=== PATIENT | female | born 1995 | race Hispanic/Latino ===

== ENCOUNTER 2016-08-05 17:49 | Emergency (ER) | payer MEDICAID, OTHER ==
[2016-08-05 18:09] VITALS: BP 105/63
[2016-08-05] MEDS ORDERED: MOTRIN PO ONE (19:28)
[2016-08-05 20:06] LABS: Hemoglobin 13.3 gm/dl (10.1-14.3); Mean Corpuscular HGB Conc 33 % (30-34); Mean Corpuscular Hemoglobin 29 pg (28-32); Mean Corpuscular Volume 88 fl (79-97); Platelet Count 254 K/mm3 (140-440); Red Blood Count 4.53 M/mm3 (3.65-5.03); Red Cell Distribution Width 13.2 % (13.2-15.2); White Blood Count 11.3 K/mm3 (4.5-11.0)
[2016-08-05 20:16] LABS: Anion Gap 19 mmol/L; Blood Urea Nitrogen 18 mg/dL (7-17); Calcium 8.8 mg/dL (8.4-10.2); Carbon Dioxide 23 mmol/L (22-30); Chloride 103.6 mmol/L (98-107); Glucose 84 mg/dL (65-100); Potassium 3.7 mmol/L (3.6-5.0); Sodium 142 mmol/L (137-145)
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
--- NOTE | 2016-08-06 14:10 | ED Elopement Review ---
ED Pt Elopement review - Results review Lab results: Laboratory Tests 08/05/16 08/05/16 19:45 19:45 WBC 11.3 H RBC 4.53 Hgb 13.3 Hct 40.0 MCV 88 MCH 29 MCHC 33 RDW 13.2 Plt Count 254 Sodium 142 Potassium 3.7 Chloride 103.6 Carbon Dioxide 23 Anion Gap 19 BUN 18 H Creatinine 0.6 L Estimated GFR > 60 BUN/Creatinine Ratio 30.00 Glucose 84 Calcium 8.8 - Call Back decision Pt Call Back Decision: No action required
== END 2016-08-06 03:05 | disposition left against medical advice (07) ==
LOC: ED 17:49
DX: M25.532 Pain in left wrist (principal); M54.2 Cervicalgia; M25.561 Pain in right knee; R51 Headache; M54.9 Dorsalgia, unspecified; R42 Dizziness and giddiness; Z53.21 Procedure and treatment not carried out due to patient leaving prior to being seen by health care provider; V89.2XXA Person injured in unspecified motor-vehicle accident, traffic, initial encounter; Y93.89 Activity, other specified; Y99.8 Other external cause status; Y92.89 Other specified places as the place of occurrence of the external cause
CPT/HCPCS: 36415; 80048; 85027; 93005; 93010

== ENCOUNTER 2016-12-24 08:41 | Emergency (ER) | payer MEDICAID, OTHER ==
[2016-12-24 09:01] VITALS: BP 106/70
[2016-12-24] MEDS ORDERED: TORADOL IM ONE (10:05)
[2016-12-24] MEDS ORDERED: DECADRON IV ONE (10:05)
[2016-12-24] MEDS ORDERED: DECADRON IM ONE (10:09)
--- NOTE | 2016-12-24 10:11 | Emergency Department Report ---
ED Back Pain/Injury HPI - General Chief Complaint: Back Pain/Injury Stated Complaint: BODY PAIN Time Seen by Provider: 12/24/16 09:59 Source: patient Limitations: No Limitations - History of Present Illness Initial Comments: Patient comes into the ER today with complaints of lower back pain that seems to be radiating to both of her legs down the back side all the way down to her knees. Patient denies any recent injury. Patient states that the pain started yesterday and she has not taken anything for it. Patient states the pain is worse with ambulation and movement. Patient does note that she has a history of bad disc problems in her back and used to see a chiropractor where she got injections in her spine. Patient further notes that she quit seen them whenever they tried to convince her to have surgery on her back. Patient states that she has been doing okay until yesterday. Patient states that she describes the pain as sharp stabbing pain and almost like a spasming muscle. Any dysuria, abdominal pain, vomiting. MD Complaint: back pain - Related Data Previous Rx's Medication Instructions Recorded Last Taken Type Ferrous Sulfate [Feosol 325 MG tab] 325 mg PO BID #60 tablet 03/15/15 Unknown Rx Ibuprofen [Motrin 600 MG tab] 600 mg PO Q6HR #30 tablet 03/15/15 Unknown Rx Vit-Fe Fumar-FA [ 1 each PO QDAY #30 tablet 03/15/15 Unknown Rx Vitamin] Cyclobenzaprine HCl [Flexeril 5 MG 5 mg PO TID #15 tab 12/24/16 Unknown Rx TAB] Naproxen [Naprosyn TAB] 500 mg PO BID #20 tablet 12/24/16 Unknown Rx traMADol [Ultram 50 MG tab] 50 mg PO Q6HR PRN #20 tablet 12/24/16 Unknown Rx Allergies Allergy/AdvReac Type Severity Reaction Status Date / Time No Known Allergies Allergy Verified 12/24/16 08:57 ED Review of Systems ROS: Stated complaint: BODY PAIN Other details as noted in HPI Constitutional: denies: chills, fever Eyes: denies: eye pain, eye discharge, vision change ENT: denies: ear pain, throat pain Respiratory: denies: cough, shortness of breath, wheezing Cardiovascular: denies: chest pain, palpitations Endocrine: no symptoms reported Gastrointestinal: denies: abdominal pain, nausea, diarrhea Genitourinary: denies: urgency, dysuria, discharge Musculoskeletal: back pain, myalgia. 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 - Surgical History Past Surgical History?: No - Social History Smoking Status: Current Every Day Smoker Substance Use Type: Alcohol - Medications Home Medications: Home Medications Medication Instructions Recorded Confirmed Last Taken Type Ferrous Sulfate [Feosol 325 MG tab] 325 mg PO BID #60 tablet 03/15/15 Unknown Rx Ibuprofen [Motrin 600 MG tab] 600 mg PO Q6HR #30 tablet 03/15/15 Unknown Rx Vit-Fe Fumar-FA [ 1 each PO QDAY #30 tablet 03/15/15 Unknown Rx Vitamin] Cyclobenzaprine HCl [Flexeril 5 MG 5 mg PO TID #15 tab 12/24/16 Unknown Rx TAB] Naproxen [Naprosyn TAB] 500 mg PO BID #20 tablet 12/24/16 Unknown Rx traMADol [Ultram 50 MG tab] 50 mg PO Q6HR PRN #20 tablet 12/24/16 Unknown Rx ED Physical Exam - General Limitations: No Limitations General appearance: alert, in no apparent distress - Head Head exam: Present: atraumatic, normocephalic - Eye Eye exam: Present: normal appearance - ENT ENT exam: Present: mucous membranes moist - Neck Neck exam: Present: normal inspection - Respiratory Respiratory exam: Present: normal lung sounds bilaterally. Absent: respiratory distress - Cardiovascular Cardiovascular Exam: Present: regular rate, normal rhythm. Absent: systolic murmur, diastolic murmur, rubs, gallop - GI/Abdominal GI/Abdominal exam: Present: soft, normal bowel sounds. Absent: distended, tenderness - Extremities Exam Extremities exam: Present: normal inspection, full ROM, normal capillary refill. Absent: tenderness, pedal edema, joint swelling, calf tenderness - Back Exam Back exam: Present: normal inspection, tenderness (right greater than left sided tenderness to lumbar paraspinal muscles.), muscle spasm (right-sided lumbar muscle swelling and tenderness), paraspinal tenderness. Absent: full ROM (Limited range of motion secondary to pain.), CVA tenderness (R), CVA tenderness (L), vertebral tenderness, rash noted - Neurological Exam Neurological exam: Present: alert, oriented X3, CN II-XII intact, normal gait, reflexes normal. Absent: motor sensory deficit - Psychiatric Psychiatric exam: Present: other (patient is very dramatic during examination) - Skin Skin exam: Present: warm, dry, intact, normal color. Absent: rash ED Course Vital Signs 12/24/16 08:57 Temperature 98.4 F Pulse Rate 85 Respiratory 18 Rate Blood Pressure 106/70 O2 Sat by Pulse 100 Oximetry ED Medical Decision Making - Radiology Data Radiology results: report reviewed, image reviewed interpreted by me: X-ray LS spine: Mild right lateral rotation suggestive of muscle spasm. X-ray LS spine: No acute fracture - Medical Decision Making Patient is nontoxic and hemodynamically stable. Patient was given Toradol and Decadron intramuscular injection for radiculopathy inflammation. X-ray imaging obtained and reviewed with patient room. Physical exam and history is more consistent with muscle spasm causing a pinched nerve versus discogenic etiology. He'll continue patient on a short course of medications for symptomatic relief and refer patient back to neurosurgery for further evaluation. I have encouraged patient to avoid any strenuous heavy lifting pushing pulling for the next few days. Patient is in agreement with treatment plan patient stable for discharge. Critical care attestation.: If time is entered above; I have spent that time in minutes in the direct care of this critically ill patient, excluding procedure time. ED Disposition Clinical Impression: Low back pain, Lumbar radiculopathy Disposition: - TO HOME OR SELFCARE Is pt being admited?: No Does the pt Need Aspirin: No Condition: Good Instructions: Lumbar Disc Herniation (ED), Low Back Strain (ED), Lumbar Radiculopathy (ED) Prescriptions: Cyclobenzaprine HCl [Flexeril 5 MG TAB] 5 mg PO TID #15 tab Naproxen [Naprosyn TAB] 500 mg PO BID #20 tablet traMADol [Ultram 50 MG tab] 50 mg PO Q6HR PRN #20 tablet PRN Reason: Pain Referrals: PRIMARY CARE, [Primary Care Provider] - 3-5 Days KAREN BORREGO MD [Staff Physician] - 3-5 Days Forms: Work/School Release Form(ED) Time of Disposition: 10:37
--- NOTE | 2016-12-24 10:27 | XRay Report ---
Lumbar spine 3 views: History: Lumbar radiculopathy. Findings: Normal height of vertebral bodies and intervertebral discs. Normal articular surfaces. No fracture. No paravertebral soft tissue calcification. Impression: No acute fracture.
== END 2016-12-24 10:43 | disposition home or self-care (01) ==
LOC: ED 08:41
DX: M54.16 Radiculopathy, lumbar region (principal); M54.5 Low back pain; F17.200 Nicotine dependence, unspecified, uncomplicated
CPT/HCPCS: 72100; 96372; 99283; J1100; J1885

== ENCOUNTER 2017-06-19 19:41 | Emergency (ER) | payer MEDICAID ==
[2017-06-19] MEDS ORDERED: TYLENOL PO ONE (20:14)
[2017-06-19] MEDS ORDERED: PROVENTIL IH ONE (20:15)
[2017-06-19] MEDS ORDERED: TYLENOL ONE (20:16)
--- NOTE | 2017-06-19 21:05 | XRay Report ---
FINAL REPORT PROCEDURE: Chest. TECHNIQUE: PA and lateral views. HISTORY: Cough. COMPARISON: No prior studies are available for comparison. FINDINGS: The heart and mediastinum appear normal. The lungs are clear and well expanded. There are no pleural effusions. The soft tissues and regional skeleton are unremarkable. IMPRESSION: Normal study.
[2017-06-20] MEDS ORDERED: TESSALON PERLES PO ONE (07:52)
--- NOTE | 2017-06-20 08:01 | Emergency Department Report ---
- General Chief Complaint: Upper Respiratory Infection Stated Complaint: SHORT OF BREATH Time Seen by Provider: 06/20/17 07:12 Source: patient Mode of arrival: Ambulatory Limitations: No Limitations - History of Present Illness Initial Comments: This is a 21-year-old female nontoxic, well nourished in appearance, no acute signs of distress presents to the ED with c/o of shortness of breath, productive cough, fever, chills, rhinorrhea, body aches, 3 days. They state his symptoms are worsening. Patient denies any hemoptysis, calf pain, calf tenderness, nausea, vomiting, headache, stiff neck, abdominal pain, pelvic pain , numbness, tingling, chest pain, difficulty breathing, or blurry vision. Patient denies any recent travels, long car rides, or recent DISEASE. Patient denies any allergies. Past medical history includes irregular heart rhythm and slipped lumbar disc. MD Complaint: fever, cough, sore throat, rhinorrhea, nasal congestion, other ( shortness of breathe) -: Gradual, days(s) (3) Severity: mild Severity scale (0 -10): 8 Quality: aching Consistency: constant Improves With: nothing Worsens With: nothing Associated Symptoms: fever, chills, rhinorrhea, nasal congestion, sore throat, cough. denies: myalgias, diaphoresis, headache, stiff neck, chest pain, shortness of breath, abdominal pain, nausea, vomiting, diarrhea, dysuria, rash, confusion, right sweats, weight loss, epistaxis, hoarseness, ear pain Treatments Prior to Arrival: none - Related Data Previous Rx's Medication Instructions Recorded Last Taken Type Ferrous Sulfate [Feosol 325 MG tab] 325 mg PO BID #60 tablet 03/15/15 Unknown Rx Ibuprofen [Motrin 600 MG tab] 600 mg PO Q6HR #30 tablet 03/15/15 Unknown Rx Vit-Fe Fumar-FA [ 1 each PO QDAY #30 tablet 03/15/15 Unknown Rx Vitamin] Cyclobenzaprine HCl [Flexeril 5 MG 5 mg PO TID #15 tab 12/24/16 Unknown Rx TAB] Naproxen [Naprosyn TAB] 500 mg PO BID #20 tablet 12/24/16 Unknown Rx traMADol [Ultram 50 MG tab] 50 mg PO Q6HR PRN #20 tablet 12/24/16 Unknown Rx Azithromycin [Zithromax Z-ED] 250 mg PO DAILY #6 tablet 06/20/17 Unknown Rx Benzonatate [Tessalon Perle] 100 mg PO Q6H PRN #20 capsule 06/20/17 Unknown Rx Ibuprofen [Motrin] 600 mg PO Q8H PRN #30 tablet 06/20/17 Unknown Rx Nystas/Diphen/Xyl Visc/Mylanta 15 ml MM Q6H PRN 10 Days udc 06/20/17 Unknown Rx [Magic Mouthwash] Allergies Allergy/AdvReac Type Severity Reaction Status Date / Time No Known Allergies Allergy Verified 12/24/16 08:57 ED Review of Systems ROS: Stated complaint: SHORT OF BREATH Other details as noted in HPI Constitutional: chills, fever Eyes: denies: eye pain, eye discharge, vision change ENT: throat pain. denies: ear pain Respiratory: cough, shortness of breath. denies: wheezing Cardiovascular: denies: chest pain, palpitations Endocrine: no symptoms reported Gastrointestinal: denies: abdominal pain, nausea, diarrhea Genitourinary: denies: urgency, dysuria, discharge Musculoskeletal: denies: back pain, joint swelling, arthralgia Skin: denies: rash, lesions Neurological: denies: headache, weakness, paresthesias Psychiatric: denies: anxiety, depression Hematological/Lymphatic: denies: easy bleeding, easy bruising ED Past Medical Hx - Past Medical History Hx Hypertension: No Hx Heart Attack/AMI: No Hx Congestive Heart Failure: No Hx Diabetes: No Hx Deep Vein Thrombosis: No Hx Renal Disease: No Hx Sickle Cell Disease: No Hx Seizures: No Hx Asthma: No Hx COPD: No Hx HIV: No Additional medical history: irregular heart rhythm SLIPPED DISC IN BACK - Surgical History Past Surgical History?: No - Social History Smoking Status: Current Every Day Smoker Substance Use Type: None - Medications Home Medications: Home Medications Medication Instructions Recorded Confirmed Last Taken Type Ferrous Sulfate [Feosol 325 MG tab] 325 mg PO BID #60 tablet 03/15/15 Unknown Rx Ibuprofen [Motrin 600 MG tab] 600 mg PO Q6HR #30 tablet 03/15/15 Unknown Rx Vit-Fe Fumar-FA [ 1 each PO QDAY #30 tablet 03/15/15 Unknown Rx Vitamin] Cyclobenzaprine HCl [Flexeril 5 MG 5 mg PO TID #15 tab 07/15/17 Unknown Rx TAB] Naproxen [Naprosyn TAB] 500 mg PO BID #20 tablet 12/24/16 Unknown Rx traMADol [Ultram 50 MG tab] 50 mg PO Q6HR PRN #20 tablet 12/24/16 Unknown Rx Azithromycin [Zithromax Z-ED] 250 mg PO DAILY #6 tablet 06/20/17 Unknown Rx Benzonatate [Tessalon Perle] 100 mg PO Q6H PRN #20 capsule 06/20/17 Unknown Rx Ibuprofen [Motrin] 600 mg PO Q8H PRN #30 tablet 06/20/17 Unknown Rx Nystas/Diphen/Xyl Visc/Mylanta 15 ml MM Q6H PRN 10 Days udc 06/20/17 Unknown Rx [Magic Mouthwash] ED Physical Exam - General Limitations: No Limitations General appearance: alert, in no apparent distress - Head Head exam: Present: atraumatic, normocephalic - Eye Eye exam: Present: normal appearance, PERRL, EOMI Pupils: Present: normal accommodation - ENT ENT exam: Present: mucous membranes moist, TM's normal bilaterally, normal external ear exam - Expanded ENT Exam Expanded Ear exam: Present: normal external inspection Mouth exam: Present: normal external inspection, tongue normal. Absent: drooling, trismus, muffled voice, tongue elevation, laceration Teeth exam: Present: normal inspection Throat exam: Positive: tonsillar erythema. Negative: tonsillomegaly, tonsillar exudate, R peritonsillar mass, L peritonsillar mass - Neck Neck exam: Present: normal inspection, full ROM. Absent: tenderness, meningismus, lymphadenopathy, thyromegaly - Respiratory Respiratory exam: Present: normal lung sounds bilaterally. Absent: respiratory distress, wheezes, rales, rhonchi, stridor, chest wall tenderness, accessory muscle use, decreased breath sounds, prolonged expiratory - Cardiovascular Cardiovascular Exam: Present: regular rate, normal rhythm, tachycardia, normal heart sounds. Absent: irregular rhythm, systolic murmur, diastolic murmur, rubs , gallop - GI/Abdominal GI/Abdominal exam: Present: soft, normal bowel sounds. Absent: distended, tenderness, guarding, rebound, rigid, diminished bowel sounds - External exam: Present: normal external exam - Extremities Exam Extremities exam: Present: normal inspection, full ROM, normal capillary refill. Absent: tenderness, pedal edema, joint swelling, calf tenderness - Back Exam Back exam: Present: normal inspection, full ROM. Absent: tenderness, CVA tenderness (R), CVA tenderness (L), muscle spasm, paraspinal tenderness, vertebral tenderness, rash noted - Neurological Exam Neurological exam: Present: alert, oriented X3, CN II-XII intact, normal gait, reflexes normal - Psychiatric Psychiatric exam: Present: normal affect, normal mood - Skin Skin exam: Present: warm, dry, intact, normal color. Absent: rash - Other Other exam information: Negative calf tenderness, Homans test, or erythema of the calf. ED Course Vital Signs 06/19/17 06/20/17 06/20/17 20:06 08:01 09:24 Temperature 99.7 F H 99 F Pulse Rate 96 H 90 Respiratory 20 18 18 Rate Blood Pressure 109/59 Blood Pressure 98/60 [Left] O2 Sat by Pulse 96 Oximetry - Reevaluation(s) Reevaluation #1: 06/20/17 08:03 Patient is speaking in full sentences with no signs of distress noted. ED Medical Decision Making - Lab Data Result diagrams: 06/20/17 09:30 06/20/17 09:30 - EKG Data When compared to previous EKG there are: no significant change Interpretation: no acute changes, normal EKG - Medical Decision Making 21-year-old female that presents with upper respiratory infection. Patient stable and was examined by me. Patient received albuterol, Motrin, Tessalon Perles, and viscous lidocaine in the ED which patient stated his symptoms of shortness of breath has improved and is subsided. Chest x-ray has been obtained and the radiologist with normal exam. CBC, BMP, presents as an d- dimer obtained within normal limits. Patient is discharged with azithromycin, Tessalon Perles, and Magic mouthwash. This was instructed Follow-up with a primary care doctor in 3-5 days or if symptoms worsen and continue return to emergency room as soon as possible. At time time of discharge, the patient does not seem toxic or ill in appearance. No acute signs of distress noted. Patient agrees to discharge treatment plan of care. No further questions noted by the patient. Prior to discharge the Vital signs stable and patient is not tachypneic or febrile. EKG normal sinus rhytm. Wells criteria 0 point for PE. Patient received 20 Potassium chloride due to potassium being 3.3. Dr. Camilo has been consulted and agrees to the discharge plan of care. Critical care attestation.: If time is entered above; I have spent that time in minutes in the direct care of this critically ill patient, excluding procedure time. ED Disposition Clinical Impression: Upper respiratory disease, Hypokalemia Disposition: - TO HOME OR SELFCARE Is pt being admited?: No Does the pt Need Aspirin: No Condition: Stable Instructions: Ibuprofen (By mouth), Azithromycin (By mouth), Fever in Adults ( ED), Upper Respiratory Infection (ED) Additional Instructions: Follow-up with a primary care doctor in 3-5 days or if symptoms worsen and continue return to emergency room as soon as possible. Take Motrin during fever episode. Increase hydration and rest. Prescriptions: Azithromycin [Zithromax Z-ED] 250 mg PO DAILY #6 tablet Benzonatate [Tessalon Perle] 100 mg PO Q6H PRN #20 capsule PRN Reason: Cough Ibuprofen [Motrin] 600 mg PO Q8H PRN #30 tablet PRN Reason: Fever Nystas/Diphen/Xyl Visc/Mylanta [Magic Mouthwash] 15 ml MM Q6H PRN 10 Days udc PRN Reason: Sore Throat Referrals: TERESA LOWE MD [Primary Care Provider] - 3-5 Days PRIMARY CARE, [Referring] - 3-5 Days [facility] [Outside] - 3-5 Days [facility] [Outside] - 3-5 Days Forms: Work/School Release Form(ED)
[2017-06-20 08:02] VITALS: BP 98/60
[2017-06-20 09:40] LABS: Basophils % (Auto) 0.2 % (0.0-1.8); Hematocrit 40.8 % (30.3-42.9); Hemoglobin 14.1 gm/dl (10.1-14.3); Lymphocytes # (Auto) 1.3 K/mm3 (1.2-5.4); Lymphocytes % (Auto) 15.9 % (13.4-35.0); Mean Corpuscular HGB Conc 35 % (30-34); Mean Corpuscular Hemoglobin 31 pg (28-32); Mean Corpuscular Volume 89 fl (79-97); Monocytes # (Auto) 1.1 K/mm3 (0.0-0.8); Monocytes % (Auto) 14.1 % (0.0-7.3); Platelet Count 112 K/mm3 (140-440); Red Cell Distribution Width 12.9 % (13.2-15.2)
[2017-06-20] MEDS ORDERED: MOTRIN PO ONE (09:51)
[2017-06-20 10:06] LABS: BUN/Creatinine Ratio 18; Blood Urea Nitrogen 7 mg/dL (7-17); Calcium 8.7 mg/dL (8.4-10.2); Hemolysis Index 8
[2017-06-20] MEDS ORDERED: K-DUR PO ONE (10:12)
== END 2017-06-20 10:26 | disposition home or self-care (01) ==
LOC: ED 19:41
DX: J06.9 Acute upper respiratory infection, unspecified (principal); E87.6 Hypokalemia; F17.200 Nicotine dependence, unspecified, uncomplicated
CPT/HCPCS: 36415; 71046; 80048; 84703; 85025; 85379; 87400; 99284